=== PATIENT | female | born 1975 | race Caucasian/White ===

== ENCOUNTER 2024-01-29 08:01 | Day surgery (SDC) | payer OTHER ==
[~2024-01-29] VITALS: Ht 121.9 cm; Wt 68.0 kg
[2024-01-29] MEDS ORDERED: MIDAZOLAM 2 MG/2 ML VIAL ONE (12:46)
[2024-01-29] MEDS ORDERED: fentaNYL citrate 0.05 MG/ML VIAL ONE (12:46)
[2024-01-29] MEDS ORDERED: LIDOCAINE 2% 100 MG/5 ML UJET TP ONE ×2 (12:47→13:45)
[2024-01-29] MEDS: fentaNYL citrate 0.05 MG/ML VIAL IVP ONE (13:11)
== END 2024-01-29 14:20 | disposition home or self-care (01) ==
LOC: MDS 08:01 → MMU 08:02 → MDS 14:20
PROVIDERS: ATTEND Internal Medicine Gastroenterology
DX: Z12.11 Encounter for screening for malignant neoplasm of colon (principal); D12.5 Benign neoplasm of sigmoid colon; Z98.51 Tubal ligation status; Z80.49 Family history of malignant neoplasm of other genital organs
CPT/HCPCS: 45385; J3010; J2250